=== PATIENT | female | born 1985 | race Hispanic/Latino ===

== ENCOUNTER 2018-07-08 07:31 | Inpatient (IN) | payer MEDICAID, SELFPAY ==
[2018-07-08 08:17] VITALS: BMI 29.0
[2018-07-08] MEDS: Lactated Ringer's 1,000 ML IV ONE ×2 (08:30→09:30)
[2018-07-08] MEDS ORDERED: ceFAZolin 2 GM in Sodium Chloride 0.9% 100 ML IVPB ONE (08:34)
[2018-07-08] MEDS ORDERED: Lactated Ringer's 1,000 ML IV ONE ×2 (08:36→10:30)
[2018-07-08 09:09] LABS: BASO % 0.3 % (0.0-2.0); EOS # 0.1 K/uL (0.0-0.7); EOS % 1.7 % (0.0-4.0); LYMPH # 1.8 K/uL (1.0-4.3); LYMPH % 30.8 % (20.0-40.0); MEAN CELL VOLUME 75.6 fl (81.0-99.0); MEAN CORPUSCULAR HEMOGLOBIN 24.6 pg (27.0-31.0); MEAN CORPUSCULAR HGB CONC 32.5 g/dL (33.0-37.0); MEAN PLATELET VOLUME 9.6 fl (7.2-11.7); MONO # 0.6 K/uL (0.0-0.8); NEUT # 3.3 K/uL (1.8-7.0); NEUT % 57.2 % (50.0-75.0); NRBC % 0.1 % (0.0-0.0); RBC 4.48 Mil/uL (3.80-5.20); RED CELL DISTRIBUTION WIDTH 15.1 % (11.5-14.5); WHITE BLOOD COUNT 5.9 K/uL (4.8-10.8)
[2018-07-08] MEDS ORDERED: Oxytocin 30 UNIT in NS 500 ml 30 UNITS/500 ML BAG IV ONE (09:12)
[2018-07-08] MEDS ORDERED: OXYTOCIN/0.9 % NS 20 UNIT/1,000 ML BAG IV ONE (09:13)
[2018-07-08 11:30] VITALS: RESP 18
[2018-07-08] MEDS ORDERED: Bupivacaine 0.25% 300 ML in Sodium Chloride 0.9% 300 ML IS ONE (12:30)
[2018-07-08] MEDS ORDERED: Absorbable Gelatin Sponge Size 12-7 ONE ×2 (14:30)
[2018-07-08] MEDS ORDERED: DiphenhydrAMINE 50 mg/ml Inj IVP PRN (15:11)
[2018-07-08] MEDS ORDERED: Oxycodone/Acetaminophen 5/325 mg Tab PO PRN ×3 (15:13→17:14)
[2018-07-08] MEDS ORDERED: Simethicone 80 mg Chewtab PO SCH (16:00)
[2018-07-08] MEDS ORDERED: Lactated Ringer's 500 ML IV ONE (16:37)
--- NOTE | 2018-07-08 18:08 | OBADHP ---
Datetime: 07/08/2018 09:10 IP Chief Complaint Other: Scheduled Admit Comment, IP Provider: HPI: Shannon is a 33 year old at 39.0 weeks here for repeat . Patient does not want a tubal ligation. History G1: 2009, at 38 weeks, female G2: 2013, at 39 weeks, male G3: Current Problems Denies PMH Denies PSH x2 Medications PNV Allergies NKDA Social No tobacco, alcohol or drug use during Family History Not significant PHYSICAL EXAM Vitals reviewed labs: GTT 75, Rubella immune, HIV/RPR nonreactive, GC/Chlamydia negative, GBS negative ASSESSMENT/PLAN: 33 year old at 39.0 weeks here for repeat - Patient does not want tubal ligation - Pre-op orders - Consent obtained for , risks/benefits/alternatives discussed Plan discussed with Dr. Alcon Cole MD OB Fellow The patient was seen with the resident I agree with the note Presentation-Admit: Vertex IP Fetus A Comments: Reactive NST FHR - Baseline A Provider: 120 Gestation - Est Wks by US: 39.0 NICHD Variability Prov Fetus A: Moderate 6-25bpm NICHD Accel Fetus A IP Provider: 15X15 NICHD Decel Fetus A IP Provider: None Dilatation, Provider: NA IP Adm Impression: Term, intrauterine IP Admit Plan: Admit to unit; Initiate Section protocol
--- NOTE | 2018-07-08 18:30 | OBDS ---
DELIVERY PERSONNEL Delivery Doctor: George Rondon MD Imagery Analyst: Oneyda Perez RN Anesthesiologist: Dr. Wild MATERNAL INFORMATION Delivery Anesthesia: Spinal Medications in Delivery: Pitocin 30 mu/500 mL NS Estimated Blood Loss (ml): 1000 Placenta Cultured: No Maternal Complications: None Provider Comments: See operative report LABOR SUMMARY EDC: 07/15/2018 00:00 No. Babies in Womb: 1 Attempted: No Labor Anesthesia: Intrathecal LABOR INFORMATION Reason for Induction: Not Applicable Oxytocin: N/A Group B Beta Strep: Negative Antibiotics # of Doses: 1 Antibiotics Time of Last Dose: 1345 Steroids Given: None Reason Steroids Not Administered: Not Applicable MEMBRANES Membranes Rupture Method: Artificial Rupture of Membranes: 07/08/2018 14:09 Length of Rupture (hrs): 0.00 Amniotic Fluid Color: Clear Amniotic Fluid Amount: Moderate Amniotic Fluid Odor: None STAGES OF LABOR Stage 3 hrs: 0 Stage 3 min: 1 CSECTION DELIVERY Primary Indication: Repeat Elective CSection Urgency: Elective CSection Incidence: Repeat Labor: No Labor Elective: Elective CSection Incision: Lower Uterine Transverse BABY A INFORMATION Delivery Date/Time: 07/08/2018 14:09 Method of Delivery: Born in Route : No : N/A Forceps: N/A Vacuum Extraction: N/A Shoulder Dystocia : No SHOULDER DYSTOCIA BABY A Infant Delivery Date/Time: 07/08/2018 14:09 PRESENTATION/POSITION BABY A Presentation: Cephalic Cephalic Presentation: Vertex Breech Presentation: N/A PLACENTA INFORMATION BABY A Placenta Delivery Time : 07/08/2018 14:10 Placenta Method of Delivery: Expressed Placenta Status: Delivered SCORES BABY A Heart Rate 1 min: >100 bpm Resp Effort 1 min: Good Cry Reflex Irritability 1 min: Cough or Sneeze or Pulls Away Muscle Tone 1 min: Active Motion Color 1 min: Body [place], Extremities Blue Resuscitation Effort 1 min: Tactile Stimulation SCORE 1 MIN: 9 Heart Rate 5 min: >100 bpm Resp Effort 5 min: Good Cry Reflex Irritability 5 min: Cough or Sneeze or Pulls Away Muscle Tone 5 min: Active Motion Color 5 min: Body [place], Extremities Blue Resuscitation Effort 5 min: N/A SCORE 5 MIN: 9 INFANT INFORMATION BABY A Gestational Age at Delivery: 39.0 Gestational Status: Term Infant Outcome : Liveborn Condition : Stable Sex: Female IDENTIFICATION/MEDS BABY A ID Band Number: [id number] ID Band Location: Left Leg; Left Arm WEIGHT/LENGTH BABY A Infant Birthweight (gms): 2950 Infant Weight (lb): 6 Infant Weight (oz): 8 Length Inches: 19.25 Infant Length cms: 48.9 CORD INFORMATION BABY A No. Cord Vessels: 3 Nuchal Cord : Around Neck x1, Loose Cord Blood Taken: Yes Suction: Mouth; Nose
[2018-07-08] MEDS: Simethicone 80 mg Chewtab PO SCH (22:01)
[2018-07-09] MEDS: Simethicone 80 mg Chewtab PO SCH ×5 (04:45→21:53)
--- NOTE | 2018-07-09 05:22 | OP ---
PROCEDURE DATE: 07/08/2018 PREOPERATIVE DIAGNOSIS: History of previous section x2, 39 weeks gestation. POSTOPERATIVE DIAGNOSIS: History of previous section x2, 39 weeks gestation. OPERATION PERFORMED: Repeat low flap transverse section via Pfannenstiel skin incision. SURGEON: Shakira Rondon MD CHANNELER OUTSOLE: Dr. Tammy Cole. She was helpful in creating exposure, obtaining hemostasis, delivery of the , and closure of the patient. The procedure would not have been possible without her assistance. ESTIMATED BLOOD LOSS: 1000 mL. INTRAVENOUS FLUID INTAKE: The patient received approximately 1400 mL of D5 LR intraoperatively. URINE OUTPUT: Approximately 150 mL of clear urine. DESCRIPTION OF PROCEDURE: After informed consent was obtained, the patient was taken to the operating room where she was given spinal anesthesia. She was then prepped and draped in a normal sterile fashion with a leftward tilt. A Pfannenstiel skin incision was then made with a scalpel and carried down to the underlying layer of fascia. The fascia was then nicked in the midline. The fascial incision was then extended laterally with curved Peters scissors. The superior aspect of the fascial incision was then grasped with Haroon clamps, elevated up, and the rectus muscles were dissected off using both sharp and blunt dissection. Attention was then turned to the inferior aspect of the fascial incision, which in a similar fashion was grasped with Haroon clamps, elevated up, and the rectus muscles were dissected off using both sharp and blunt dissection. The rectus muscles were then in the midline. The peritoneum was identified and entered sharply with the Metzenbaum scissors. The peritoneal incision was then extended superiorly and inferiorly with good visualization of the bladder. The bladder blade was then inserted. The vesicouterine peritoneum was identified and entered sharply with Metzenbaum scissors. The incision was then extended laterally. The bladder flap was created digitally. The bladder blade was then readjusted. A low-transverse incision was made with the scalpel. The incision was then extended laterally with the bandage scissors. The 's head was delivered atraumatically. The nose and mouth were suctioned with DeLee suction trap. The cord was clamped and cut. The infant was handed off to the awaiting pediatricians. The placenta was then removed manually. The uterus was exteriorized and cleared of all clots and debris. The uterine incision was repaired with 0 Vicryl in a running locked fashion. The second layer of the same suture was used to obtain excellent hemostasis. The abdomen was then copiously irrigated. The irrigant was removed with the suction device. The uterus was returned to the abdomen. This incision was inspected and noted to be hemostatic. The peritoneum was then closed with 2-0 Vicryl in a running fashion. The muscle was reapproximated with 0 Vicryl in an interrupted fashion. The fascia was closed with 0 Vicryl in a running fashion. The skin was closed with 3-0 and a Kye needle. All sponge, lap, needle, and instrument counts were correct x2, and the patient was taken to the recovery room in awake and stable condition. Shakira Rondon MD
[2018-07-09 06:38] LABS: HEMOGLOBIN 10.3 g/dL (12.0-16.0); MEAN CELL VOLUME 75.5 fl (81.0-99.0); MEAN CORPUSCULAR HEMOGLOBIN 24.7 pg (27.0-31.0); MEAN CORPUSCULAR HGB CONC 32.7 g/dL (33.0-37.0); RBC 4.19 Mil/uL (3.80-5.20); WHITE BLOOD COUNT 10.8 K/uL (4.8-10.8)
[2018-07-09] MEDS: Multivitamin With Minerals Tab PO SCH (08:40)
[2018-07-09] MEDS: Oxycodone/Acetaminophen 5/325 mg Tab PO PRN ×2 (08:40→14:20)
[2018-07-09] MEDS ORDERED: Multivitamin With Minerals Tab PO SCH (09:00)
--- NOTE | 2018-07-09 11:39 | OBPPN ---
Datetime: 07/09/2018 05:30 PP Pain Prov: Within normal limits PP Nausea Prov: Denies PP Flatus Prov: Yes PP BM Prov: No PP Breasts Prov: Not Done PP Heart Prov: Normal PP Lungs Prov: Normal PP Abdomen/Uterus Prov: Normal PP Lochia Prov: Normal PP Vulva/Perineum Prov: Not Done PP CVA Tenderness Prov: Not Done PP Extremities Prov: Normal PP C/S Incision Prov: Normal PP Progress Prov: Normal PP Impression Prov: Normal progression PP Plan Prov: Continue present management PP Progress Note Prov: S: 33 YO s/pod #1 of . Patient seen and examined at bedside. No complaints at this time. Tolerating PO intake of fluids. Denies difficulties Denies pain. Lochia like menses. Endorses passing gas, no BM. ROS: all systems reviewed and negative except per HPI. VS: stable GEN: NAD Cardio: RRR, S1S2 present, no murmurs noted Lungs: clear breath sounds b/l, no wheezing Abdomen: BS+, soft, non-tender. Uterus is firm and at the level of the umbilicus. EXT: No erythema/tenderness/swelling NEURO/PSYCH: AAOx3, no grossly focal deficits, preserved affect and mood. A/P: 33 YO POD1 s/p . Normal progression -d/c stoddard catheter -encouraged ambulation -Motrin 600mg po q6h and percocet for pain as per pain scale -Senakot 17.2mg po QHS -Encourage -Continue vit -advance to regular diet -possible d/c on 07/11/2018 naveen Miller Case reviewed and discussed with attending Addendum by Dr. Layne: I have evaluated the patient independently and I agree with the above IP PP Procedures: None Vital Signs Provider PP: Reviewed; Within Normal Limits
[2018-07-10] MEDS: Simethicone 80 mg Chewtab PO SCH ×4 (04:26→21:39)
[2018-07-10] MEDS: Multivitamin With Minerals Tab PO SCH (09:00)
--- NOTE | 2018-07-10 13:25 | OBPPN ---
Datetime: 07/10/2018 06:00 PP Pain Prov: Within normal limits PP Nausea Prov: Denies PP Flatus Prov: Yes PP BM Prov: No PP Breasts Prov: Not Done PP Heart Prov: Normal PP Lungs Prov: Normal PP Abdomen/Uterus Prov: Normal PP Lochia Prov: Normal PP Vulva/Perineum Prov: Not Done PP CVA Tenderness Prov: Normal PP Extremities Prov: Normal PP C/S Incision Prov: Normal PP Progress Prov: Normal PP Impression Prov: Normal progression PP Plan Prov: Continue present management PP Progress Note Prov: S: 33 YO doing well on pod #2 of . Patient seen and examined at bedside. ROS: all systems reviewed and negative except per HPI. VS: stable GEN: NAD Cardio: RRR, S1S2 present, no murmurs noted Lungs: clear breath sounds b/l, no wheezing Abdomen: BS+, soft, non-tender. Uterus is firm and at the level of the umbilicus. EXT: No erythema/tenderness/swelling NEURO/PSYCH: AAOx3, no grossly focal deficits, preserved affect and mood. A/P: 33 YO POD2 s/p . Normal progression -encouraged ambulation -Motrin 600mg po q6h and percocet for pain as per pain scale -Senakot 17.2mg po QHS -Encourage -Continue vit -advance to regular diet -possible d/c on 07/11/2018 naveen Miller Case reviewed and discussed with attending Attending addendum: I saw and examined the patient at bedside myself this morning. I reviewed the resident note above and agree with findings and management. Keisha Ibarra MD IP PP Procedures: None Vital Signs Provider PP: Reviewed; Within Normal Limits
[2018-07-10] MEDS: Oxycodone/Acetaminophen 5/325 mg Tab PO PRN ×2 (14:04→21:36)
[2018-07-10] MEDS ORDERED: Lansinoh for Breast Feeding Mothers TP ONE (20:21)
[2018-07-11] MEDS: Simethicone 80 mg Chewtab PO SCH ×2 (03:32→09:19)
--- NOTE | 2018-07-11 07:36 | OBPPN ---
Datetime: 07/11/2018 06:00 PP Pain Prov: Within normal limits PP Nausea Prov: Denies PP Flatus Prov: Yes PP BM Prov: No PP Breasts Prov: Not Done PP Heart Prov: Normal PP Lungs Prov: Normal PP Abdomen/Uterus Prov: Normal PP Lochia Prov: Not Done PP Vulva/Perineum Prov: Not Done PP CVA Tenderness Prov: Not Done PP Extremities Prov: Normal PP C/S Incision Prov: Normal PP Progress Prov: Normal PP Impression Prov: Normal progression PP Plan Prov: Discharge PP Progress Note Prov: S: 33 YO doing well on pod #3 of . Patient seen and examined at bedside. No complaints at this time. ROS: all systems reviewed and negative except per HPI. VS: stable GEN: NAD Cardio: RRR, S1S2 present, no murmurs noted Lungs: clear breath sounds b/l, no wheezing Abdomen: BS+, soft, non-tender. Uterus is firm and at the level of the umbilicus. EXT: No erythema/tenderness/swelling NEURO/PSYCH: AAOx3, no grossly focal deficits, preserved affect and mood. A/P: 33 YO POD3 s/p . Normal progression -encouraged ambulation -Motrin 600mg po q6h and percocet for pain as per pain scale -Senakot 17.2mg po QHS -Encourage -Continue vit -advance to regular diet -discharge today naveen Miller Case reviewed and discussed with attending OB Hospitalist note. Agree wth note above...will give one dulcolax supp. Dischage home and follo w up in 1-2w IP PP Procedures: None Vital Signs Provider PP: Reviewed; Within Normal Limits
--- NOTE | 2018-07-11 07:41 | OBDCSUM ---
Datetime: 07/11/2018 05:30 Discharged to, Provider: Home Follow up at, Provider: Dr. Singletary Disch Instr Activity: Normal activity Disch Instr Diet: Regular Discharge Instructions, Provider: Routine instructions given Discharge Diagnosis, Provider: Term Delivered Follow up in weeks, Provider: 1 week Disch Referrals: None Contraception discussed, Prov: Yes Disch Activity Restrictions: Minimize stair-climbing; No sexual activity; Nothing in vagina - Interc ourse, tampons, douche Discharge Comment, Provider: Discharge Summary DOA: 07/08/2018 EGA: 39.0 Diagnosis: S/P repeat Summary of : 33 y/o s/p repeat L_D summary: Pt is s/p . Pain was well controlled with pain meds. No nausea. Tolerated re gular diet well. Passing flatus, no BM. Voiding well w/o difficulties. Breast and formula feeding wit hout difficulty. Lochia is similar to menses volume. DOL: 07/08/18 @ 14:09 NB: F : 11/16 Weight: 2950 gm Lochia less menses, mild pain, controlled with medications Blood type: A+, Antibody - aCBC: 11.0/33.9 pCBC: 10.3/31.7 Discharge Date: 07/11/2018 Discharge Instructions: -Encourage -Encourage ambulation -Ibuprofen mild to moderate pain -Continue vitamins at home - Sen[place]ot 7.2 mg PO QD - ED precautions: If excessive bleeding, pain that does not get relief, fever >100.4, palpitations , SOB, CP or other concerning symptom go to the ED. - PT was urged if feeling sad, mood swing, depression, neglect of baby, suicidal thoughts, homicid al thoughts go to ER or call 911 for help - Pt should go to her Primary care doctor if have difficulty with breast feeding - F/U w/ OB in 1 week for wound check. naveen Miller Contraception after Delivery: Undecided
[2018-07-11] MEDS: Multivitamin With Minerals Tab PO SCH (09:19)
[2018-07-11 17:59] VITALS: BP 104/65; PULSE 94; TEMP 98.5; O2SAT 99
== END 2018-07-11 11:45 | disposition home or self-care (01) | DRG 540 ==
LOC: H.EROB2 07:31 → H.L&D 08:35 → H.OB/GYN 17:44
PROVIDERS: ADMIT Obstetrics & Gynecology Gynecology; ATTEND Obstetrics & Gynecology Gynecology
PROC: 10D00Z1 Extraction of Products of Conception, Low, Open Approach (ICD-10-PCS; principal; 2018-07-08)
PROC: 4A1HXCZ Monitoring of Products of Conception, Cardiac Rate, External Approach (ICD-10-PCS; 2018-07-08)
DX: O34.211 Maternal care for low transverse scar from previous cesarean delivery (principal); O69.81X0 Labor and delivery complicated by cord around neck, without compression, not applicable or unspecified; Z37.0 Single live birth; Z3A.39 39 weeks gestation of pregnancy